=== PATIENT | female | born 1990 | race African-American/Black ===

== ENCOUNTER 2016-06-15 12:16 | Emergency (ER) | payer OTHER ==
[~2016-06-15] VITALS: Ht 165.1 cm; Wt 77.1 kg
[~2016-06-15 12:16] MED LIST: AUGMENTIN TAB875 MG ORAL; CIPRO500 MG PO; FAMOTIDINE40 MG ORAL; KEFLEX250 MG ORAL; KEFLEX500 MG ORAL; METROGEL-VAGINA70 G1 VAGIN; METRONIDAZOLE500 MG ORAL; NITROFURANTOIN100 MG PO; NKM; PHENERGAN25 M1 ORAL; PRENAPLUS TABL1 EACH PO; PRILOSEC20 MG ORAL; REGLAN10 MG ORAL; ZOFRAN ODT4 MG ORAL; ZOFRAN4 MG ORAL
--- NOTE | 2016-06-15 13:35 | Emergency Room Report ---
History of Present Illness General Chief Complaint: Nausea, Vomiting, and Diarrhea Present Illness Allergies: Coded Allergies: CODEINE (Verified Allergy, Mild, Hives, 08/10/13) Physical Exam Vital Signs Date Time Temp Pulse Resp B/P Pulse Ox O2 Delivery O2 Flow Rate FiO2 06/15/16 12:20 97.7 93 20 101/62 100 Room Air Medical Decision Making ER Course Informed by RN that patient didnt want to wait to be seen, requesting note to return to longterm. Last Vital Signs Date Time Temp Pulse Resp B/P Pulse Ox O2 Delivery O2 Flow Rate FiO2 06/15/16 12:20 97.7 93 20 101/62 100 Room Air Disposition: LEFT W/OUT BEING SEEN Referrals: NON PHYSICIAN (PCP) JULIÁN BLOOM M.D. Jun 15, 2016 13:35
[2016-06-16 05:03] VITALS: BP 1/1
== END 2016-06-15 13:39 | disposition left against medical advice (07) ==
LOC: EMR 12:50
DX: R11.2 Nausea with vomiting, unspecified (principal); Z53.21 Procedure and treatment not carried out due to patient leaving prior to being seen by health care provider
CPT/HCPCS: 99281

== ENCOUNTER 2016-06-19 17:25 | Emergency (ER) | payer OTHER ==
[~2016-06-19] VITALS: Ht 165.1 cm; Wt 77.1 kg
[2016-06-19 18:17] VITALS: BP 131/72
[2016-06-19] MEDS ORDERED: Mylanta II UD 30ml ORAL ONE (18:45)
[2016-06-19] MEDS ORDERED: Lidocaine 2% Visc 15ml soln ORAL ONE (18:45)
[2016-06-19] MEDS ORDERED: Ondansetron ODT 8mg tab ORAL ONE (18:45)
[2016-06-19] MEDS ORDERED: Dicyclomine HCl 10mg/5ml oral soln ORAL ONE (18:45)
--- NOTE | 2016-06-19 18:51 | Emergency Room Report ---
History of Present Illness General Chief Complaint: Abdominal Pain Source: Patient Present Illness HPI 26-year-old female complains of left-sided chest discomfort and abdominal discomfort for one day. Patient states that 2 weeks ago and he had some old meat that she just defrosted from the freezer. States that the next day she started to have nausea, vomiting, and abdominal pain. Patient states that she still has some nausea, but her vomiting and abdominal pain has resolved. Patient states that now she is experiencing body aches, nausea, bloating, left- sided chest /left upper quadrant pressure, and epigastric discomfort for the past 1-2 days. Patient states that her chest pressure only present when she is laying supine and resolves with sitting upright. Patient states that she is not taking any yceu-eyr-rqmeffa medications currently that there are no other provoking or relieving factors. Patient states that no one else in her family has similar symptoms as she is the only one who ate the questionable meat. Denies any current f/c/d, abd pain, back pain, neck pain, photophobia, phonophobia, CP, SOB or headache. Allergies: Coded Allergies: CODEINE (Verified Allergy, Mild, Hives, 08/10/13) Patient History Past Medical History: see triage record, old chart reviewed Past Surgical History: none Pertinent Family History: none Last Menstrual Period: 06/16/2016 Now: No : 2 Para: 1 Immunizations: UTD Reviewed Nursing Documentation: PMH: Agreed, PSxH: Agreed Nursing Documentation-PMH Past Medical History: No Stated History Review of Systems All Other Systems: negative except mentioned in HPI Physical Exam Vital Signs Date Time Temp Pulse Resp B/P Pulse Ox O2 Delivery O2 Flow Rate FiO2 06/19/16 17:44 97.7 73 16 128/74 100 Room Air Sp02 EP Interpretation: reviewed, normal General Appearance: no apparent distress, alert, GCS 15, non-toxic Head: normocephalic, atraumatic Eyes: bilateral eye PERRL, bilateral eye normal inspection ENT: hearing grossly normal, normal pharynx, no angioedema, normal voice, TMs + canals normal Neck: full range of motion, supple/symm/no masses Respiratory: chest non-tender, lungs clear, normal breath sounds, no rhonchi, no respiratory distress, no retraction, no accessory muscle use, speaking full sentences, palpation of chest normal, percussion normal Cardiovascular #1: normal peripheral pulses, regular rate, rhythm, no edema, no gallop, no murmur, no rub Gastrointestinal: normal bowel sounds, soft, non-distended, no guarding, no rebound, tenderness - epigastric Rectal: deferred Genitourinary: normal inspection, no CVA tenderness Musculoskeletal: back normal, digits/nails normal, gait/station normal, normal range of motion, non-tender Neurologic: alert, oriented x3, responsive, motor strength/tone normal, sensory intact, speech normal Psychiatric: judgement/insight normal, memory normal, mood/affect normal, no suicidal/homicidal ideation Skin: normal color, no rash, warm/dry, well hydrated Lymphatic: no adenopathy Medical Decision Making PA Attestation Dr. Juarez is my supervising physician with whom patient management has been discussed with. Diagnostic Impression: Primary Impression: Gastritis Qualified Codes: K29.00 - Acute gastritis without bleeding Additional Impression: Upper respiratory infection Qualified Codes: J06.9 - Acute upper respiratory infection, unspecified; B97.89 - Other viral agents as the cause of diseases classified elsewhere ER Course Pt. presents to the ED c/o of n/v and chest pressure with uri sxs. Ddx considered but are not limited to bronchitis, pneumonia, viral upper respiratory tract infection Vital signs: are WNL, pt. is afebrile H&PE are most consistent with gastritis with viral upper respiratory tract infection ORDERS: none required at this time, the diagnosis is clinical ED INTERVENTIONS: Decadron 4mg PO, GI Cocktail DISCHARGE: At this time pt. is stable for d/c to home. Patient states her symptoms have greatly improved after GI cocktail. Patient advised to f/u with PCP within next 5-7 days. Will provide printed patient care instructions, and any necessary prescriptions. Care plan and follow up instructions have been discussed with the patient prior to discharge. Last Vital Signs Date Time Temp Pulse Resp B/P Pulse Ox O2 Delivery O2 Flow Rate FiO2 06/19/16 18:17 97.6 69 15 131/72 99 Room Air Status: improved Disposition: HOME, SELF-CARE Condition: Improved Scripts Omeprazole Magnesium (OMEPRAZOLE MAGNESIUM) 20 Mg Capsule. 20 MG PO DAILY for 10 Days, #10 CAP Prov: JUNAID MCGOWAN P.A. 2/19/17 Famotidine (PEPCID) 40 Mg Tablet 40 MG PO QHS, #7 TAB 0 Refills Prov: JUNAID MCGOWAN 06/19/16 [facility] Patient Instructions: Gastritis, Adult, Upper Respiratory Infection, Adult Additional Instructions: Take medication as directed. Drink plenty of fluids which include Gatorade and water. Get plenty of rest. Avoid taking medications on an empty stomach. If you have cough avoid dairy and cold beverages. If you have a fever, headache or body aches please take zkoe-swv-[id number] tylenol/motrin/advil unless a prescription for these symptoms have been given. If your symptoms are worsening or you have shortness or breath, severe headaches or chest pain, please call 911 or go to the ER. Patient instructed to stay well hydrated and to use a liquid diet and then progress to soft bland diet as tolerated before reverting back to a regular diet. Patient Education was given to the patient. Patient advised if irreretractible pain, rectal bleeding, or no BM to go to ER immediately. JUNAID MCGOWAN Jun 19, 2016 18:51
[2016-06-19] MEDS ORDERED: PEPCID40 MG PO (19:03)
[2016-06-19] MEDS ORDERED: OMEPRAZOLE MAGN20 MG PO (19:03)
[2016-06-19 19:12] VITALS: BP 131/72
== END 2016-06-19 19:13 | disposition home or self-care (01) ==
LOC: EMR 18:25
DX: K29.70 Gastritis, unspecified, without bleeding (principal); J06.9 Acute upper respiratory infection, unspecified; Z88.6 Allergy status to analgesic agent
CPT/HCPCS: 99284; J8540; Q0162

== ENCOUNTER 2017-05-13 17:12 | Emergency (ER) | payer MEDICAID, OTHER ==
[~2017-05-13] VITALS: Ht 165.1 cm; Wt 81.6 kg
[~2017-05-13 17:12] MED LIST changes: +OMEPRAZOLE MAGN20 MG PO; +PEPCID40 MG PO
[2017-05-13 17:29] VITALS: BP 119/73
[2017-05-13] MEDS ORDERED: Metoclopramide 10mg/2ml Inj IVP SCH (18:00)
[2017-05-13 19:30] VITALS: BP 122/73
[2017-05-13] MEDS ORDERED: REGLAN10 MG ORAL (19:32)
[2017-05-13] MEDS ORDERED: ZANTAC150 MG ORAL (19:32)
[2017-05-13 19:34] LABS: APPEARANCE,URINE CLEAR; BILIRUBIN, URINE NEGATIVE (NEGATIVE); COLOR,URINE YELLOW; GLUCOSE, URINE (UA) NEGATIVE (NEGATIVE); KETONES,URINE NEGATIVE (NEGATIVE); LEUKOCYTE ESTERASE ,URINE NEGATIVE (NEGATIVE); NITRITE,URINE NEGATIVE (NEGATIVE); PH,URINE 6 (4.5-8.0); PROTEIN,URINE NEGATIVE (NEGATIVE); UROBILINOGEN,URINE NORMAL MG/DL (0.0-1.0)
[2017-05-13 19:47] VITALS: BP 122/73
--- NOTE | 2017-05-13 23:37 | Emergency Room Report ---
History of Present Illness General Chief Complaint: Nausea Source: Patient, Medical Record Present Illness HPI 19-year-old female presents to the emergency department for persistent vomiting times almost one week. Patient denies blood in the vomit or stool. Patient denies constipation or diarrhea. Patient reports that she is 7 weeks . Patient is normal uncomplicated previous . Pt. reports 8/10 in severity epigastric cramping during episodes of vomiting and resolves afterward. Patient says she has been taking prenatals, folic acid and iron regularly. Patient denies fevers or chills per she denies abdominal pain or tenderness. She reports mild progressive sore throat she believes is related to persistent vomiting/acid reflux. Patient denies vaginal bleeding or discharge. Denies CP, Palpitations, LOC, AMS, dizziness, Changes in Vision, Sensation, paresthesias, or a sudden severe headache. Allergies: Coded Allergies: CODEINE (Verified Allergy, Mild, Hives, 08/10/13) Patient History Past Medical History: see triage record Past Surgical History: none Pertinent Family History: none Last Menstrual Period: 03/01/17 Now: Yes - 7 weeks Reviewed Nursing Documentation: PMH: Agreed, PSxH: Agreed Nursing Documentation-PMH Past Medical History: No History, Except For Review of Systems All Other Systems: negative except mentioned in HPI Physical Exam Vital Signs Date Time Temp Pulse Resp B/P (MAP) Pulse Ox O2 Delivery O2 Flow Rate FiO2 05/13/17 17:22 98.4 87 16 119/73 98 Room Air Sp02 EP Interpretation: reviewed, normal General Appearance: alert, GCS 15, non-toxic, mild distress - gagging just prior to PE Head: normocephalic, atraumatic Eyes: bilateral eye normal inspection, bilateral eye PERRL ENT: hearing grossly normal, normal voice, uvula midline, moist mucus membranes , pharyngeal erythema Neck: full range of motion Respiratory: lungs clear, normal breath sounds, speaking full sentences Cardiovascular #1: regular rate, rhythm, no edema Gastrointestinal: normal bowel sounds, non tender, soft, other - Negative [place] signs, Negative MacBurney's sign, Negative Rosvigns Sign, Negative Psoas , No Peritoneal signs. Rectal: deferred Genitourinary: normal inspection Musculoskeletal: back normal, gait/station normal, normal range of motion, non- tender Neurologic: alert, oriented x3, responsive, motor strength/tone normal, sensory intact, normal gait, speech normal, grossly normal Psychiatric: judgement/insight normal Skin: normal color, no rash, warm/dry Medical Decision Making PA Attestation Dr. Tracey is my supervising Physician whom patient management has been discussed with. Diagnostic Impression: Primary Impression: Nausea and vomiting in ER Course 19-year-old female presents to the emergency department for persistent vomiting times almost one week. Patient denies blood in the vomit or stool. Patient denies constipation or diarrhea. Patient reports that she is 7 weeks . Patient is normal uncomplicated previous . Pt. reports 8/10 in severity epigastric cramping during episodes of vomiting and resolves afterward. Patient says she has been taking prenatals, folic acid and iron regularly. Patient denies fevers or chills per she denies abdominal pain or tenderness. She reports mild progressive sore throat she believes is related to persistent vomiting/acid reflux. Patient denies vaginal bleeding or discharge. Denies CP, Palpitations, LOC, AMS, dizziness, Changes in Vision, Sensation, paresthesias, or a sudden severe headache. Ddx considered but are not limited to GE, colitis, acute appy, SBO, Cyclical Vomiting secondary to THC, esophageal bleed, , or hyperemesis gravidarum just to name a few Vital signs: pt. is afebrile, non-toxic in appearance. H&PE are most consistent with nausea /vomiting associated with - that is not intractable in addition to mild dehydration. ORDERS: -UA: Unremarkable ED INTERVENTIONS: -1000 NS iv hydration, 10mg Reglan -Reevaluation the patient is in no acute distress and able to tolerate oral fluids. Patient reports she feels much better and is ready to go home. d/w pt. conservative treatment, and to follow up with OBGYN. . d/w pt. to return to the ED with worsening or new symptoms. DISCHARGE: At this time pt. is stable for d/c to home. Will provide printed patient care instructions, and any necessary prescriptions. Care plan and follow up instructions have been discussed with the patient prior to discharge. Labs Test 05/13/17 19:00 Urine Color Yellow Urine Appearance Clear Urine pH 6 (4.5-8.0) Urine Specific [place] 1.020 (1.005-1.035) Urine Protein Negative (NEGATIVE) Urine Glucose (UA) Negative (NEGATIVE) Urine Ketones Negative (NEGATIVE) Urine Occult Blood Negative (NEGATIVE) Urine Nitrite Negative (NEGATIVE) Urine Bilirubin Negative (NEGATIVE) Urine Urobilinogen Normal MG/DL (0.0-1.0) Urine Leukocyte Esterase Negative (NEGATIVE) Last Vital Signs Date Time Temp Pulse Resp B/P (MAP) Pulse Ox O2 Delivery O2 Flow Rate FiO2 05/13/17 17:29 98.4 85 16 119/73 98 Room Air Disposition: HOME, SELF-CARE Condition: Stable Scripts Ranitidine Hcl* (ZANTAC*) 150 Mg Tablet 150 MG ORAL TWICE A DAY for 7 Days, #14 TAB Prov: Bailey Tian 05/13/17 Metoclopramide Hcl* (REGLAN*) 10 Mg Tablet 10 MG ORAL THREE TIMES A DAY, #20 TAB Prov: Bailey Tian. 05/13/17 Referrals: [facility],REFERRING (PCP) Patient Instructions: Nausea and Vomiting, Adult, Dehydration, Adult Additional Instructions: Take medications as directed. Follow up with a OBGYN within 3 days, even if your symptoms have resolved. Return sooner to ED if new symptoms occur, or current symptoms become worse. - Please note that this Emergency Department Report was dictated using [employer] sorter technology software, occasionally this can lead to erroneous entry secondary to interpretation by the dictation equipment. Bailey Tian May 13, 2017 23:37
== END 2017-05-13 19:47 | disposition home or self-care (01) ==
LOC: EMR 17:39
DX: O21.9 Vomiting of pregnancy, unspecified (principal); Z3A.01 Less than 8 weeks gestation of pregnancy; Z88.6 Allergy status to analgesic agent
CPT/HCPCS: 81003; 96374; 96375; 99284; J2765

== ENCOUNTER 2017-08-19 10:22 | Emergency (ER) | payer MEDICAID, OTHER ==
[~2017-08-19] VITALS: Ht 165.1 cm; Wt 81.6 kg
[~2017-08-19 10:22] MED LIST changes: +ZANTAC150 MG ORAL
[2017-08-19] MEDS ORDERED: NKM (10:32)
[2017-08-19] MEDS ORDERED: Ketorolac 60mg Inj IM ONE (10:45)
[2017-08-19 11:00] VITALS: BP 110/66
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
[2017-08-19] MEDS ORDERED: IBUPROFEN600 MG ORAL (11:32)
[2017-08-19] MEDS ORDERED: CYCLOBENZAPRINE10 MG ORAL (11:32)
[2017-08-19] MEDS ORDERED: ACETAMINOPHEN500 M3 ORAL (11:32)
[2017-08-19 11:48] VITALS: BP 110/66
== END 2017-08-19 11:49 | disposition home or self-care (01) ==
LOC: EMR 10:49
DX: S13.4XXA Sprain of ligaments of cervical spine, initial encounter (principal); V43.52XA Car driver injured in collision with other type car in traffic accident, initial encounter; Y92.410 Unspecified street and highway as the place of occurrence of the external cause; Y99.9 Unspecified external cause status; Z88.5 Allergy status to narcotic agent
CPT/HCPCS: 96372; 99283

== ENCOUNTER 2018-04-09 12:25 | Emergency (ER) | payer MEDICAID ==
[~2018-04-09] VITALS: Ht 165.1 cm; Wt 81.6 kg
[~2018-04-09 12:25] MED LIST changes: +ACETAMINOPHEN500 M3 ORAL; +CYCLOBENZAPRINE10 MG ORAL; +IBUPROFEN600 MG ORAL
[2018-04-09 12:35] VITALS: BP 123/72
[2018-04-09] MEDS ORDERED: Lidocaine 1% MPF 10mg/ml 5ml INJ ONE (12:45)
[2018-04-09] MEDS ORDERED: Azithromycin 250mg tab ORAL ONE (12:45)
[2018-04-09] MEDS ORDERED: Fluconazole 100mg tab ORAL ONE (12:45)
--- NOTE | 2018-04-09 12:46 | Emergency Room Report ---
History of Present Illness General Chief Complaint: Female Urogenital Problems Source: Patient Present Illness HPI 28-year-old female patient presents the ER complaining of vaginal discharge for the past 2 days. Reports vaginal discharge is white, reports pruritic. Dysuria , hematuria. Denies foul-smelling odor. Denies fever, chest pain, shortness of breath, abdominal pain, flank pain, vomiting. Reports last menstrual period was normal for her, states was on 15th of last month, denies . Patient is being seen in the ER with her boyfriend who is currently asymptomatic. Patient reports concern of possible STI, would like to be treated. Allergies: Coded Allergies: CODEINE (Verified Allergy, Mild, Hives, 08/10/13) Patient History Past Medical History: see triage record Now: No Reviewed Nursing Documentation: PMH: Agreed; PSxH: Agreed Nursing Documentation-PMH Past Medical History: No Stated History Review of Systems All Other Systems: negative except mentioned in HPI Physical Exam Vital Signs Date Time Temp Pulse Resp B/P (MAP) Pulse Ox O2 Delivery O2 Flow Rate FiO2 04/09/18 12:27 98.4 71 17 126/73 99 Room Air Sp02 EP Interpretation: reviewed, normal General Appearance: well appearing, no apparent distress, alert, GCS 15, non- toxic Head: normocephalic, atraumatic Eyes: bilateral eye normal inspection, bilateral eye PERRL ENT: hearing grossly normal, normal pharynx, no angioedema, normal voice, uvula midline, moist mucus membranes Neck: full range of motion Respiratory: lungs clear, normal breath sounds, no rhonchi, no respiratory distress, no accessory muscle use, no wheezing, speaking full sentences Cardiovascular #1: regular rate, rhythm, no edema Gastrointestinal: non tender, soft, no mass, non-distended, no guarding, no rebound Genitourinary: no CVA tenderness Musculoskeletal: back normal, digits/nails normal, gait/station normal, normal range of motion, non-tender Neurologic: alert, oriented x3, responsive, motor strength/tone normal, sensory intact Psychiatric: mood/affect normal Skin: no rash Medical Decision Making PA Attestation Dr. Gomez is my supervising Physician whom patient management has been discussed with. Diagnostic Impression: Primary Impression: Yeast UTI Additional Impression: Encounter for assessment of sexually transmitted disease exposure ER Course Pt. presents to the ED c/o STI. Ddx considered but are not limited to gonorrhea, chalmydia, cystitis, pylonephritis, bacterial vaginosis, yeast infection. Vital signs: are WNL, pt. is afebrile Ordered UA and abx. ER COURSE: Patient history consistent with yeast infection, will provide patient with fluconazole in the ER. UA results show moderate epithelial cells, likely contaminated sample, negative nitrites, low suspicion for infection Urine negative Provided patient with Rocephin and Azithromycin in the ER. Informed patient medications will cover for gonorrhea and chlamydia, needs further follow-up evaluation and possible treatment of other sexual transmitted infections. Advised to use safe sex practices including but not limited to use of condoms. Avoid sexual activity for the next 2 weeks. Instructed patient to follow up with STI clinic and/or PCP for STI evaluation and further treatment as necessary. Instructed patient to inform partners of needs for evaluation and treatment of possible infections. DISCHARGE: Patient is resting comfortably, in no acute distress, nontoxic appearing, talking without difficulty. Patient to take medications as instructed Will provide with patient care instructions and any necessary prescriptions. Care plan and follow-up instructions provided. Patient instructed to follow-up with primary care provider in 3 - 5 days. Patient questions asked and answered. Patient reports understanding and agreement to treatment plan. ER precautions given. Patient instructed to return to ER immediately for any new or worsening of symptoms including but not limited to increasing SOB, persistent fever. - Please note that this Emergency Department Report was dictated using [employer] technology software, occasionally this can lead to erroneous entry secondary to interpretation by the dictation equipment. Labs Test 04/09/18 12:26 Urine Color Pale yellow Urine Appearance Clear Urine pH 6 (4.5-8.0) Urine Specific [place] 1.020 (1.005-1.035) Urine Protein Negative (NEGATIVE) Urine Glucose (UA) Negative (NEGATIVE) Urine Ketones 2+ (NEGATIVE) Urine Blood 1+ (NEGATIVE) Urine Nitrite Negative (NEGATIVE) Urine Bilirubin Negative (NEGATIVE) Urine Urobilinogen Normal MG/DL (0.0-1.0) Urine Leukocyte Esterase 2+ (NEGATIVE) Urine RBC 5-10 /HPF (0 - 2) Urine WBC 2-4 /HPF (0 - 2) Urine Squamous Epithelial Cells Moderate /LPF (NONE/OCC) Urine Bacteria Few /HPF (NONE) Urine HCG, Qualitative Negative (NEGATIVE) Last Vital Signs Date Time Temp Pulse Resp B/P (MAP) Pulse Ox O2 Delivery O2 Flow Rate FiO2 04/09/18 12:35 98.7 70 16 123/72 99 Room Air Status: improved Disposition: HOME, SELF-CARE Condition: Stable Patient Instructions: Sexually Transmitted Disease, Hvvy-vo-[id number], Vaginal Yeast Infection, Adult Additional Instructions: Followup with primary care provider and followup with STI clinic for further evaluation and treatment. Alert sexual partners for need for evaluation and treatment. Wear condoms during sex. Avoid sexual activity for 2 weeks. Drink plenty of fluids. Patient questions asked and answered. ER precautions given, patient instructed to return to ER immediately for any new or worsening of symptoms. Gee Lyles Apr 09, 2018 12:46
[2018-04-09 13:16] LABS: APPEARANCE,URINE CLEAR; BILIRUBIN, URINE NEGATIVE (NEGATIVE); COLOR,URINE PALE YELLOW; GLUCOSE, URINE (UA) NEGATIVE (NEGATIVE); KETONES,URINE 2+ (NEGATIVE); LEUKOCYTE ESTERASE ,URINE 2+ (NEGATIVE); NITRITE,URINE NEGATIVE (NEGATIVE); PH,URINE 6 (4.5-8.0); PROTEIN,URINE NEGATIVE (NEGATIVE); UROBILINOGEN,URINE NORMAL MG/DL (0.0-1.0)
[2018-04-09 13:52] VITALS: BP 125/71
== END 2018-04-09 13:54 | disposition home or self-care (01) ==
LOC: EMR 13:35
DX: B37.49 Other urogenital candidiasis (principal); Z20.2 Contact with and (suspected) exposure to infections with a predominantly sexual mode of transmission
CPT/HCPCS: 81003; 81025; 96372; 96374; 99284; J0696; Q0144

== ENCOUNTER 2018-10-13 17:38 | Emergency (ER) | payer MEDICAID ==
[~2018-10-13] VITALS: Ht 165.1 cm; Wt 81.6 kg
--- NOTE | 2018-10-13 18:34 | NUR ---
ED Nurse Note: Pt came in from home due to n/v/d x1 day. Emesis was undigested food and fluid. Last bowel movement was today. No complaint of pain. no active vomiting upon arrival. AOx4, VSS fadumo. Will cont to monitor.
[2018-10-13 18:35] VITALS: BP 129/79
[2018-10-13 19:09] LABS: APPEARANCE,URINE CLEAR; BILIRUBIN, URINE NEGATIVE (NEGATIVE); GLUCOSE, URINE (UA) NEGATIVE (NEGATIVE); KETONES,URINE 1+ (NEGATIVE); LEUKOCYTE ESTERASE ,URINE NEGATIVE (NEGATIVE); NITRITE,URINE NEGATIVE (NEGATIVE); PH,URINE 6 (4.5-8.0); PROTEIN,URINE NEGATIVE (NEGATIVE); UROBILINOGEN,URINE NORMAL MG/DL (0.0-1.0)
--- NOTE | 2018-10-13 19:10 | NUR ---
ED Nurse Note: Received report from Tiana/RN, Pt is A/O X4. VSS, will continue to monitor.
[2018-10-13 19:12] LABS: COLOR,URINE YELLOW
[2018-10-13 19:19] LABS: ANION GAP 10 mmol/L (5-15); BLOOD UREA NITROGEN 13 mg/dL (7-18); CALCIUM 9.2 MG/DL (8.5-10.1); CARBON DIOXIDE 26 MMOL/L (21-32); CHLORIDE 104 MMOL/L (98-107); CREATININE 0.9 MG/DL (0.55-1.30); POTASSIUM 3.5 MMOL/L (3.5-5.1); SODIUM 140 MMOL/L (136-145)
--- NOTE | 2018-10-13 19:20 | NUR ---
X-ray notified to page [employer]
[2018-10-13 19:23] LABS: ALANINE AMINOTRANSFERASE 22 U/L (12-78); ALBUMIN 4.6 G/DL (3.4-5.0); ALBUMIN/GLOBULIN RATIO 1.2 (1.0-2.7); ALKALINE PHOSPHATASE 59 U/L (46-116); ASPARTATE AMINO TRANSFERASE 19 U/L (15-37); BASOPHILS % (AUTO) 0.6 % (0.0-2.0); BILIRUBIN,TOTAL 0.3 MG/DL (0.2-1.0); EOSINOPHILS % (AUTO) 1.1 % (0.0-3.0); HEMATOCRIT 32.7 % (37.0-47.0); HEMOGLOBIN 11.7 G/DL (12.0-16.0); MEAN CORPUSCULAR VOLUME 83 FL (80-99); MONOCYTES % (AUTO) 5.4 % (1.0-10.0); NEUTROPHILS % (AUTO) 73.9 % (45.0-75.0); PLATELET COUNT 328 K/UL (150-450); RED BLOOD COUNT 3.94 M/UL (4.20-5.40); RED CELL DISTRIBUTION WIDTH 11.5 % (11.6-14.8); WHITE BLOOD COUNT 9.7 K/UL (4.8-10.8)
--- NOTE | 2018-10-13 20:27 | Emergency Room Report ---
History of Present Illness General Chief Complaint: Nausea, Vomiting, and Diarrhea Source: Patient, Medical Record (Dinora Fox) Present Illness HPI 28-year-old female with no significant past medical history here complaining of waking up today with multiple bouts of nonbloody emesis. She also started having nonbloody diarrhea however denies abdominal pain reports epigastric pain only when she is about to vomit. Denies fever and chills, chest pain, shortness of breath, palpitation, URI symptoms. Denies recent travel or sick contact. She reports that she has been drinking every day for the past 2 weeks , her last menstrual period was on October 03, 2018. Patient reports that she has had miscarriages in the past however none recently. Patient then after being told that she has a positive urine for and needing more blood draw for confirmation and OB ultrasound tells my nurse that she had an elective on 02 October. When I go back in the room she tells me that she did not think that it would be necessary to tell me that she just had an 10 days ago. She reports that she had light bleeding on 02 October as she had mentioned that earlier when I asked her whether she had a regular. However she reports that she wants to be checked to see if she is still she reports that her latest ultrasound before [facility] showed single intrauterine and she had a D&C when she was 7 weeks . She never followed up with her PERMIT REVIEW ASSISTANT afterwards. Did not have any clotting and currently has no clotting vaginal cramping or bleeding. Has no vaginal discharge. Patient is in no discomfort. She further denies dizziness, headache , loss of consciousness, syncope. She is (Dinora Fox) Allergies: Coded Allergies: CODEINE (Verified Allergy, Mild, Hives, 08/10/13) Patient History Past Medical History: see triage record Past Surgical History: unable to obtain Pertinent Family History: none Last Menstrual Period: 10/03/2018 Now: No : 1 Para: 1 Immunizations: UTD Reviewed Nursing Documentation: PMH: Agreed; PSxH: Agreed (Dinora Fox) Review of Systems All Other Systems: negative except mentioned in HPI (Dinora Fox) Physical Exam Vital Signs Date Time Temp Pulse Resp B/P (MAP) Pulse Ox O2 Delivery O2 Flow Rate FiO2 10/13/18 18:05 99.1 78 15 134/80 (98) 99 Room Air Sp02 EP Interpretation: reviewed, normal General Appearance: normal inspection, well appearing, no apparent distress, alert Head: normocephalic, atraumatic Eyes: bilateral eye normal inspection, bilateral eye PERRL ENT: normal ENT inspection, hearing grossly normal, normal pharynx Neck: normal inspection, full range of motion, supple Respiratory: normal inspection, chest non-tender, lungs clear, normal breath sounds, no retraction, no wheezing Cardiovascular #1: normal inspection, regular rate, rhythm, no edema, no murmur , normal capillary refill Cardiovascular #2: 2+ dorsalis pedis (R), 2+ dorsalis pedis (L) Gastrointestinal: normal inspection, non tender, soft, no mass, no organomegaly , no peritonitis, no bruit, non-distended, other - Negative McBurney's and Rovsing's Rectal: deferred Genitourinary: no CVA tenderness Musculoskeletal: normal inspection, back normal, digits/nails normal, gait/ station normal Neurologic: normal inspection, alert, oriented x3 Psychiatric: normal inspection, judgement/insight normal, memory normal Skin: normal inspection, normal color, no rash Lymphatic: normal inspection, no adenopathy (Dinora Fox) Medical Decision Making PA Attestation All diagnoses and treatment plans were reviewed and discussed with my supervising physician Dr. Hull (Dinora Fox) Diagnostic Impression: Primary Impression: Nausea, vomiting, and diarrhea Additional Impression: Status post elective ER Course 28-year-old female with no significant past medical history here complaining of waking up today with multiple bouts of nonbloody emesis. She also started having nonbloody diarrhea however denies abdominal pain reports epigastric pain only when she is about to vomit. Denies fever and chills, chest pain, shortness of breath, palpitation, URI symptoms. Denies recent travel or sick contact. She reports that she has been drinking every day for the past 2 weeks , her last menstrual period was on October 03, 2018. Patient reports that she has had miscarriages in the past however none recently. Patient then after being told that she has a positive urine for and needing more blood draw for confirmation and OB ultrasound tells my nurse that she had an elective on 02 October. When I go back in the room she tells me that she did not think that it would be necessary to tell me that she just had an 10 days ago. She reports that she had light bleeding on 02 October as she had mentioned that earlier when I asked her whether she had a regular. However she reports that she wants to be checked to see if she is still she reports that her latest ultrasound before [facility] showed single intrauterine and she had a D&C when she was 7 weeks . She never followed up with her PERMIT REVIEW ASSISTANT afterwards. Did not have any clotting and currently has no clotting vaginal cramping or bleeding. Has no vaginal discharge. Patient is in no discomfort. She further denies dizziness, headache , loss of consciousness, syncope. She is Ddx considered but are not limited to:influenza with GI manifestation, UT, complication with , post status without complication nausea vomiting Vital signs: are WNL, pt. is afebrile H&PE are most consistent with: Nausea vomiting diarrhea, post status without complication ORDERS: CBC, CMP, UA, urine test, beta hCG, NS bolus, Zofran, omeprazole ED INTERVENTIONS: NS bolus and Zofran DISCHARGE: At this time pt. is stable for d/c to home. Will provide printed patient care instructions, and any necessary prescriptions. Care plan and follow up instructions have been discussed with the patient prior to discharge. At this time no OB ultrasound necessary as beta hCG levels are 207 11 days post D&C . No abdominal pain, no vaginal cramping I advised the patient to follow-up with her PERMIT REVIEW ASSISTANT as she was supposed to do that after D&C 11 days ago. urine preg pos, beta HCG 207 ( 8wks) (Dinora Fox) Laboratory Tests Test 10/13/18 18:40 10/13/18 19:40 White Blood Count 9.7 K/UL (4.8-10.8) Red Blood Count 3.94 M/UL (4.20-5.40) L Hemoglobin 11.7 G/DL (12.0-16.0) L Hematocrit 32.7 % (37.0-47.0) L Mean Corpuscular Volume 83 FL (80-99) Mean Corpuscular Hemoglobin 29.8 PG (27.0-31.0) Mean Corpuscular Hemoglobin Concent 35.8 G/DL (32.0-36.0) Red Cell Distribution Width 11.5 % (11.6-14.8) L Platelet Count 328 K/UL (150-450) Mean Platelet Volume 5.9 FL (6.5-10.1) L Neutrophils (%) (Auto) 73.9 % (45.0-75.0) Lymphocytes (%) (Auto) 19.0 % (20.0-45.0) L Monocytes (%) (Auto) 5.4 % (1.0-10.0) Eosinophils (%) (Auto) 1.1 % (0.0-3.0) Basophils (%) (Auto) 0.6 % (0.0-2.0) Urine Color Yellow Urine Appearance Clear Urine pH 6 (4.5-8.0) Urine Specific [place] 1.020 (1.005-1.035) Urine Protein Negative (NEGATIVE) Urine Glucose (UA) Negative (NEGATIVE) Urine Ketones 1+ (NEGATIVE) H Urine Blood 2+ (NEGATIVE) H Urine Nitrite Negative (NEGATIVE) Urine Bilirubin Negative (NEGATIVE) Urine Urobilinogen Normal MG/DL (0.0-1.0) Urine Leukocyte Esterase Negative (NEGATIVE) Urine RBC 0-2 /HPF (0 - 2) Urine WBC 0-2 /HPF (0 - 2) Urine Squamous Epithelial Cells Many /LPF (NONE/OCC) H Urine Bacteria Few /HPF (NONE) Urine HCG, Qualitative Positive (NEGATIVE) Sodium Level 140 MMOL/L (136-145) Potassium Level 3.5 MMOL/L (3.5-5.1) Chloride Level 104 MMOL/L (98-107) Carbon Dioxide Level 26 MMOL/L (21-32) Anion Gap 10 mmol/L (5-15) Blood Urea Nitrogen 13 mg/dL (7-18) Creatinine 0.9 MG/DL (0.55-1.30) Estimate Glomerular Filtration Rate > 60 mL/min (>60) Glucose Level 100 MG/DL (74-106) Calcium Level 9.2 MG/DL (8.5-10.1) Total Bilirubin 0.3 MG/DL (0.2-1.0) Aspartate Amino Transferase (AST) 19 U/L (15-37) Alanine Aminotransferase (ALT) 22 U/L (12-78) Alkaline Phosphatase 59 U/L (46-116) Total Protein 8.3 G/DL (6.4-8.2) H Albumin 4.6 G/DL (3.4-5.0) Globulin 3.7 g/dL Albumin/Globulin Ratio 1.2 (1.0-2.7) Lipase 89 U/L (73-393) Urine Opiates Screen Negative (NEGATIVE) Urine Barbiturates Screen Negative (NEGATIVE) Phencyclidine (PCP) Screen Negative (NEGATIVE) Urine Amphetamines Screen Negative (NEGATIVE) Urine Benzodiazepines Screen Negative (NEGATIVE) Urine Cocaine Screen Negative (NEGATIVE) Urine Marijuana (THC) Screen Negative (NEGATIVE) Serum Alcohol < 3 mg/dL Human Chorionic Gonadotropin, Quant 207 mIU/mL (1-6) H (Marco Antonio Hull MD) Last Vital Signs Date Time Temp Pulse Resp B/P (MAP) Pulse Ox O2 Delivery O2 Flow Rate FiO2 10/13/18 18:35 99.1 77 15 129/79 100 Room Air (Dinora Fox) Disposition: HOME, SELF-CARE Condition: Stable Scripts Omeprazole (OMEPRAZOLE) 20 Mg Capsule.dr 20 MG ORAL DAILY, #20 CAP Prov: Dinora Fox 10/13/18 Ondansetron (Zofran) 4 Mg Tablet 4 MG ORAL Q6H PRN for Nausea & Vomiting, #10 TAB Prov: Dinora Fox 10/13/18 Referrals: [facility],REFERRING (PCP) Patient Instructions: Dilation and Curettage or Vacuum Curettage, Nausea and Vomiting, Adult, [id number] Additional Instructions: Follow-up with your primary care provider and PERMIT REVIEW ASSISTANT for further assessment at this point no imaging needed as you have no abdominal pain nausea vomiting secondary to alcohol intake after a procedure that you had 10 days ago for selective at this point very low numbers of . Dinora Fox Oct 13, 2018 20:27 Marco Antonio Hull MD Oct 14, 2018 04:28
[2018-10-13] MEDS ORDERED: OMEPRAZOLE20 M2 ORAL (20:28)
[2018-10-13] MEDS ORDERED: ZOFRAN4 M1 ORAL (20:28)
[2018-10-13 20:50] VITALS: BP 128/76
--- NOTE | 2018-10-13 20:50 | NUR ---
ER DISCHARGE NOTE: Patient is cleared to be discharged per ERMD. Pt is aox4 on room air with stable vital signs. Pt was given dc and prescription instructions. Pt was able to verbalize understanding. Pt's id band removed. Pt is able to ambulate with steady gait and took all belongings.
== END 2018-10-13 20:50 | disposition home or self-care (01) ==
LOC: EMR 19:11
DX: R11.2 Nausea with vomiting, unspecified (principal); R19.7 Diarrhea, unspecified; Z88.6 Allergy status to analgesic agent
CPT/HCPCS: 36415; 80053; 80307; 80329; 81001; 81025; 83690; 84702; 85025; 86900; 86901; 96361; 96374; 99284; J2405

== ENCOUNTER 2018-10-24 22:30 | Emergency (ER) | payer MEDICAID ==
[~2018-10-24] VITALS: Ht 165.1 cm; Wt 81.6 kg
[~2018-10-24 22:30] MED LIST changes: +OMEPRAZOLE20 M2 ORAL; +ZOFRAN4 M1 ORAL
[2018-10-24 23:05] VITALS: BP 118/76
--- NOTE | 2018-10-24 23:10 | NUR ---
ED Nurse Note: Patient walked in to ER c/o abdominal pain 12/08. Per patient she had at [facility], and since that she has lower abdominal pain. Deny bleeding. AAO x4, VSS at this time, skin is dry warm to touch. Boyfriend at the bed side.
[2018-10-24] MEDS ORDERED: Ketorolac 30mg Inj IV ONE (23:15)
--- NOTE | 2018-10-24 23:18 | Emergency Room Report ---
History of Present Illness General Chief Complaint: Abdominal Pain Source: Patient Present Illness HPI This is a 28-year-old female who had an elective with a D&C done on October 02. She was doing well until about a week ago. Then she started having some mild suprapubic pain. Now become more severe. Has urgency and frequency. No hematuria. No vaginal bleeding. Pain is 8 out of 10. No radiation. No nausea no vomiting. Allergies: Coded Allergies: CODEINE (Verified Allergy, Mild, Hives, 10/24/18) Patient History Past Medical History: see triage record, old chart reviewed Past Surgical History: none Pertinent Family History: none Social History: Denies: smoking Last Menstrual Period: 11/12 Now: No Para: 1 Immunizations: other Reviewed Nursing Documentation: PMH: Agreed; PSxH: Agreed Nursing Documentation-PMH Past Medical History: No Stated History History Of Psychiatric Problem: No Review of Systems Eye: Denies: eye pain, blurred vision ENT: Denies: ear pain, nose congestion, throat swelling Respiratory: Denies: cough, shortness of breath Cardiovascular: Denies: chest pain, palpitations Gastrointestinal: Reports: abdominal pain; Denies: diarrhea, nausea, vomiting Genitourinary: Reports: dysuria, frequency, pain Musculoskeletal: Denies: back pain, joint pain Skin: Denies: rash Neurological: Denies: headache, numbness Endocrine: Denies: increased thirst, increased urine Hematologic/Lymphatic: Denies: easy bruising All Other Systems: negative except mentioned in HPI Physical Exam Vital Signs Date Time Temp Pulse Resp B/P (MAP) Pulse Ox O2 Delivery O2 Flow Rate FiO2 10/24/18 22:53 98.1 71 18 118/76 (90) 97 Room Air Vitals normal Sp02 EP Interpretation: reviewed, normal General Appearance: well appearing, no apparent distress, alert Head: normocephalic, atraumatic Eyes: bilateral eye PERRL, bilateral eye EOMI ENT: hearing grossly normal, normal pharynx Neck: full range of motion, supple, no meningismus Respiratory: chest non-tender, lungs clear, normal breath sounds Cardiovascular #1: regular rate, rhythm, no murmur Gastrointestinal: normal bowel sounds, non tender, no mass, no organomegaly, no bruit, non-distended Musculoskeletal: back normal, gait/station normal, normal range of motion Psychiatric: mood/affect normal Skin: warm/dry Medical Decision Making Diagnostic Impression: Primary Impression: Retained products of conception ER Course Patient presents with pelvic pain and has a small retained products of conception. No evidence of infection. No evidence of endometritis. Will discharge home. She has a follow-up with [facility]. CT/MRI/US Diagnostic Results CT/MRI/US Diagnostic Results : Imaging Test Ordered: Pelvic ultrasound Impression Read by radiologist. No focus of decreased echogenic material in the endometrium. Last Vital Signs Date Time Temp Pulse Resp B/P (MAP) Pulse Ox O2 Delivery O2 Flow Rate FiO2 10/24/18 23:05 98.1 18 118/76 97 Room Air 10/24/18 23:05 71 Status: improved Disposition: HOME, SELF-CARE Condition: Stable Scripts Ibuprofen* (MOTRIN*) 600 Mg Tablet 600 MG ORAL THREE TIMES A DAY, #30 TAB 0 Refills Prov: Liborio Gunn MD 10/25/18 Hydrocodone/Acetaminophen 5-325* (HYDROCODONE/ACETAMINOPHEN 5-325*) 1 Each Tablet 1 TAB ORAL Q6H PRN for For Pain, #10 TAB 0 Refills Prov: Liborio Gunn MD 10/25/18 Additional Instructions: Follow-up with your [facility] A[facility]LE C[facility]IER within a week. Return if worse. Liborio Gunn MD Oct 24, 2018 23:18
[2018-10-24 23:29] LABS: BASOPHILS % (AUTO) 0.7 % (0.0-2.0); EOSINOPHILS % (AUTO) 2.4 % (0.0-3.0); HEMATOCRIT 33.7 % (37.0-47.0); HEMOGLOBIN 11.5 G/DL (12.0-16.0); LYMPHOCYTES % (AUTO) 28.7 % (20.0-45.0); MEAN CORPUSCULAR VOLUME 87 FL (80-99); MONOCYTES % (AUTO) 8.5 % (1.0-10.0); NEUTROPHILS % (AUTO) 59.8 % (45.0-75.0); PLATELET COUNT 279 K/UL (150-450); RED BLOOD COUNT 3.87 M/UL (4.20-5.40); RED CELL DISTRIBUTION WIDTH 12.6 % (11.6-14.8); WHITE BLOOD COUNT 8.7 K/UL (4.8-10.8)
[2018-10-24 23:30] LABS: APPEARANCE,URINE CLEAR; BILIRUBIN, URINE NEGATIVE (NEGATIVE); COLOR,URINE PALE YELLOW; GLUCOSE, URINE (UA) NEGATIVE (NEGATIVE); KETONES,URINE NEGATIVE (NEGATIVE); LEUKOCYTE ESTERASE ,URINE 1+ (NEGATIVE); NITRITE,URINE NEGATIVE (NEGATIVE); PH,URINE 8 (4.5-8.0); PROTEIN,URINE NEGATIVE (NEGATIVE); UROBILINOGEN,URINE 4 MG/DL (0.0-1.0)
[2018-10-24 23:42] LABS: ANION GAP 9 mmol/L (5-15); BLOOD UREA NITROGEN 16 mg/dL (7-18); CALCIUM 9.6 MG/DL (8.5-10.1); CARBON DIOXIDE 28 MMOL/L (21-32); CHLORIDE 107 MMOL/L (98-107); CREATININE 0.9 MG/DL (0.55-1.30); POTASSIUM 4.1 MMOL/L (3.5-5.1); SODIUM 143 MMOL/L (136-145)
[2018-10-24 23:47] LABS: ALANINE AMINOTRANSFERASE 21 U/L (12-78); ALBUMIN 3.7 G/DL (3.4-5.0); ALKALINE PHOSPHATASE 62 U/L (46-116); ASPARTATE AMINO TRANSFERASE 13 U/L (15-37); BILIRUBIN,TOTAL 0.3 MG/DL (0.2-1.0)
[2018-10-25] MEDS ORDERED: Morphine Sulfate 4mg/ml Inj (IV USE ONLY) IVP ONE
[2018-10-25] MEDS ORDERED: IBUPROFEN600 MG ORAL (01:21)
[2018-10-25] MEDS ORDERED: HYDROCODON-ACE1 EA15 ORAL (01:21)
[2018-10-25 01:36] VITALS: BP 118/76
--- NOTE | 2018-10-25 01:37 | NUR ---
ER DISCHARGE NOTE: Patient is cleared to be discharged per ERMD, pt is aox4, on room air, with stable vital signs. pt was given dc and prescription instructions, pt was able to verbalize understanding, pt id band and iv site removed without complications. pt is able to ambulate with steady gait. pt took all belongings.
--- NOTE | 2018-10-25 17:39 | Diagnostic Imaging Report ---
Indication: Positive test patient presenting with pelvic pain Technique: Grayscale and duplex Doppler imaging of the pelvis performed utilizing a transabdominal scan and endovaginal scan. Comparison: None Findings: There is no IUP. There is mild free fluid within the cul-de-sac. The endometrium is about 9 mm in thickness which is within normal limits. Trace fluid was appreciated in real-time per technologist but not demonstrated well on static images provided. Follow-up could be performed. The uterus appears normal measuring 9.2 x 6.9 x 4.7 cm. Both ovaries are demonstrated which appear normal. Dopplerable blood flow demonstrated. Right ovary measures 3 x 3.2 x 2.6 cm. Left ovary 3.4 x 3 1.8 cm. IMPRESSION: No IUP. In light of the positive results, considerations include normal early IUP not yet visualized, ectopic and spontaneous . Follow-up and correlation with serial quantitative beta hCG recommended. Trace fluid noted in the endometrial canal in real-time perTechnologist without demonstration of this on static provided images.
== END 2018-10-25 01:37 | disposition home or self-care (01) ==
LOC: EMR 22:43
DX: O07.4 Failed attempted termination of pregnancy without complication (principal); Z88.6 Allergy status to analgesic agent; R30.0 Dysuria
CPT/HCPCS: 36415; 76801; 80053; 81003; 81025; 83690; 84702; 85025; 96361; 96374; 96375; 99284; J1885; J2270; J2405

== ENCOUNTER 2018-12-18 02:19 | Emergency (ER) | payer MEDICAID ==
[~2018-12-18] VITALS: Ht 165.1 cm; Wt 81.6 kg
[~2018-12-18 02:19] MED LIST changes: +HYDROCODON-ACE1 EA15 ORAL
[2018-12-18 02:37] VITALS: BP 120/69
--- NOTE | 2018-12-18 02:42 | Emergency Room Report ---
History of Present Illness General Chief Complaint: Vaginal Source: Patient Present Illness HPI Is a 28-year-old female with no past medical history. She presents with chief complaint of vaginal discharge. Onset for 2 days. Greenish in nature. She also found that she was yesterday. She has been getting nausea and vomiting after eating. Also has not been getting her menstrual period. She checked her urine was positive yesterday. No bleeding or pain. no Trauma. Allergies: Coded Allergies: CODEINE (Verified Allergy, Mild, Hives, 10/24/18) Patient History Past Medical History: see triage record, old chart reviewed Past Surgical History: none Pertinent Family History: none Social History: Denies: smoking Last Menstrual Period: unk Now: Yes - unk how far : 3 Para: 1 Immunizations: other Reviewed Nursing Documentation: PMH: Agreed; PSxH: Agreed Nursing Documentation-PMH Past Medical History: No Stated History Review of Systems Eye: Denies: eye pain, blurred vision ENT: Denies: ear pain, nose congestion, throat swelling Respiratory: Denies: cough, shortness of breath Cardiovascular: Denies: chest pain, palpitations Gastrointestinal: Denies: abdominal pain, diarrhea, nausea, vomiting Genitourinary: Reports: vag bleed/dc Musculoskeletal: Denies: back pain, joint pain Skin: Denies: rash Neurological: Denies: headache, numbness Endocrine: Denies: increased thirst, increased urine Hematologic/Lymphatic: Denies: easy bruising All Other Systems: negative except mentioned in HPI Physical Exam Vital Signs Date Time Temp Pulse Resp B/P (MAP) Pulse Ox O2 Delivery O2 Flow Rate FiO2 12/18/18 02:23 99.0 87 18 120/69 (86) 96 Room Air Vitals normal Sp02 EP Interpretation: reviewed, normal General Appearance: well appearing, no apparent distress, alert Head: normocephalic, atraumatic Eyes: bilateral eye PERRL, bilateral eye EOMI ENT: hearing grossly normal, normal pharynx Neck: full range of motion, supple, no meningismus Respiratory: chest non-tender, lungs clear, normal breath sounds Cardiovascular #1: regular rate, rhythm, no murmur Gastrointestinal: normal bowel sounds, non tender, no mass, no organomegaly, no bruit, non-distended Genitourinary: other - Pelvic exam 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 External exam normal. Internal exam shows yellowish-greenish discharge. No cervical motion tenderness. Musculoskeletal: back normal, gait/station normal, normal range of motion Psychiatric: mood/affect normal Medical Decision Making Diagnostic Impression: Primary Impression: Acute cervicitis Additional Impressions: UTI (urinary tract infection) Qualified Codes: N30.00 - Acute cystitis without hematuria First trimester ER Course Patient presents with vaginal discharge and first trimester . Because of the color of the discharge there were a potential for gonorrhea. Rocephin and azithromycin given here. She may have a urinary tract infection. I did a bedside ultrasound and did show a gestational sac with no obvious heart rate seen. By my measurement this is around 6 to 7 weeks. Unlikely to be a heterotropic since she is not taking any fertility medication. No evidence of ectopic. Will discharge home. Last Vital Signs Date Time Temp Pulse Resp B/P (MAP) Pulse Ox O2 Delivery O2 Flow Rate FiO2 12/18/18 02:37 99.0 80 18 120/69 96 Room Air Status: improved Disposition: HOME, SELF-CARE Condition: Stable Scripts Pnv Cmb#21/Iron/Folic Acid ( COMPLETE CAPLET) 1 Each Tablet 1 EACH PO DAILY, #100 TAB Prov: Liborio Gunn MD 12/18/18 Cephalexin* (KEFLEX*) 500 Mg Capsule 500 MG ORAL TID, #21 CAP Prov: Liborio Gunn MD 12/18/18 Ondansetron (Zofran) 4 Mg Tablet 4 MG ORAL Q6H PRN for Nausea & Vomiting, #30 TAB 0 Refills Prov: Liborio Gunn MD 12/18/18 Referrals: [facility]/,REFERRING (PCP) Additional Instructions: Follow-up with your BUILDING SERVICES SUPERVISOR within a week. Return for bleeding, increasing pain , nausea vomiting or bleeding. Return for any concern. Liborio Gunn MD Dec 18, 2018 02:42
[2018-12-18 02:49] LABS: APPEARANCE,URINE CLEAR; BILIRUBIN, URINE NEGATIVE (NEGATIVE); GLUCOSE, URINE (UA) NEGATIVE (NEGATIVE); KETONES,URINE NEGATIVE (NEGATIVE); LEUKOCYTE ESTERASE ,URINE 2+ (NEGATIVE); NITRITE,URINE NEGATIVE (NEGATIVE); PH,URINE 6 (4.5-8.0); PROTEIN,URINE NEGATIVE (NEGATIVE); UROBILINOGEN,URINE NORMAL MG/DL (0.0-1.0)
[2018-12-18 02:50] LABS: COLOR,URINE YELLOW
[2018-12-18] MEDS ORDERED: Lidocaine 1% MPF 10mg/ml 5ml INJ ONE (03:15)
[2018-12-18] MEDS ORDERED: Azithromycin 250mg tab ORAL ONE (03:15)
[2018-12-18] MEDS ORDERED: CEPHALEXIN500 MG ORAL (03:17)
[2018-12-18] MEDS ORDERED: ZOFRAN4 MG ORAL (03:17)
[2018-12-18] MEDS ORDERED: PRENATAL COMPL1 EAC1 PO (03:18)
[2018-12-18 03:29] VITALS: BP 120/72
== END 2018-12-18 03:30 | disposition home or self-care (01) ==
LOC: EMR 02:34
DX: O23.511 Infections of cervix in pregnancy, first trimester (principal); O23.11 Infections of bladder in pregnancy, first trimester; Z88.6 Allergy status to analgesic agent; Z3A.00 Weeks of gestation of pregnancy not specified
CPT/HCPCS: 81003; 87210; 96372; 96374; 99284; J0696; Q0144

== ENCOUNTER 2018-12-27 22:28 | Emergency (ER) | payer MEDICAID ==
[~2018-12-27] VITALS: Ht 165.1 cm; Wt 81.6 kg
[~2018-12-27 22:28] MED LIST changes: +CEPHALEXIN500 MG ORAL; +PRENATAL COMPL1 EAC1 PO
[2018-12-27 22:45] VITALS: BP 138/70
--- NOTE | 2018-12-27 22:45 | NUR ---
ED Nurse Note: Pt is AAOX4, VSS, with no signs of acute distress. No skin issues to note. Patient walked into ER from home due to N/V. Stated that 8 weeks and can not keep anything in X 1 week. Generalized weakness. Family at bedside.
--- NOTE | 2018-12-27 22:56 | Emergency Room Report ---
History of Present Illness General Chief Complaint: Nausea, Vomiting, and Diarrhea Source: Patient Present Illness HPI This is a 28-year-old female who is 3, para 1, A1, approximately 8 weeks . She presents with chief complaint of nausea and vomiting. Onset for about a week now. Unable to keep anything down. Denies any fever chills but denies any abdominal pain but denies any bleeding. Saw her about 9 days ago. My bedside ultrasound showed gestational sac without any IUP. Allergies: Coded Allergies: CODEINE (Verified Allergy, Mild, Hives, 10/24/18) Patient History Past Medical History: see triage record, old chart reviewed Past Surgical History: none Pertinent Family History: none Social History: Denies: smoking Now: Yes Immunizations: other Reviewed Nursing Documentation: PMH: Agreed; PSxH: Agreed Nursing Documentation-PMH Past Medical History: No Stated History Review of Systems Eye: Denies: eye pain, blurred vision ENT: Denies: ear pain, nose congestion, throat swelling Respiratory: Denies: cough, shortness of breath Cardiovascular: Denies: chest pain, palpitations Gastrointestinal: Reports: nausea, vomiting; Denies: abdominal pain, diarrhea Musculoskeletal: Denies: back pain, joint pain Skin: Denies: rash Neurological: Denies: headache, numbness Endocrine: Denies: increased thirst, increased urine Hematologic/Lymphatic: Denies: easy bruising All Other Systems: negative except mentioned in HPI Physical Exam Vital Signs Date Time Temp Pulse Resp B/P (MAP) Pulse Ox O2 Delivery O2 Flow Rate FiO2 12/27/18 22:33 98.4 73 18 134/69 (90) 99 Room Air Vitals normal Sp02 EP Interpretation: reviewed, normal General Appearance: well appearing, no apparent distress, alert Head: normocephalic, atraumatic Eyes: bilateral eye PERRL, bilateral eye EOMI ENT: hearing grossly normal, normal pharynx Neck: full range of motion, supple, no meningismus Respiratory: chest non-tender, lungs clear, normal breath sounds Cardiovascular #1: regular rate, rhythm, no murmur Gastrointestinal: normal bowel sounds, non tender, no mass, no organomegaly, no bruit, non-distended Musculoskeletal: back normal, gait/station normal, normal range of motion Psychiatric: mood/affect normal Medical Decision Making Diagnostic Impression: Primary Impression: Hyperemesis gravidarum Additional Impression: Dehydration ER Course Patient with hyperemesis gravidarum. She may have a urinary tract infection but a lot of contamination. Will wait for urine culture since she was just on antibiotics. She does have yeast in the urine and is currently on vaginal cream for it. She is contraindicated for Diflucan. Told her to continue with that and follow-up with BRAND MARKETING COORDINATOR. She is to feel better after IV fluids and antinausea medication. No evidence of any ectopic . Bedside ultrasound today showed IUP with good heartbeat of 140s. Last Vital Signs Date Time Temp Pulse Resp B/P (MAP) Pulse Ox O2 Delivery O2 Flow Rate FiO2 12/27/18 22:33 98.4 73 18 134/69 (90) 99 Room Air Status: improved Disposition: HOME, SELF-CARE Condition: Stable Scripts Cephalexin* (KEFLEX*) 500 Mg Capsule 500 MG ORAL TID, #21 CAP Prov: Liborio Gunn MD 12/28/18 Ondansetron Odt* (ZOFRAN ODT*) 4 Mg Tab.rapdis 4 MG BC EVERY 6 HOURS PRN for Nausea & Vomiting, #30 TAB 0 Refills Prov: Liborio Gunn MD 12/28/18 Additional Instructions: Advance diet slowly. Follow-up with your doctor in 7 days. Return if symptoms worsen. Liborio Gunn MD Dec 27, 2018 22:56
[2018-12-27] MEDS ORDERED: D5NS 1,000 ML IV ONE (23:00)
[2018-12-27 23:36] LABS: APPEARANCE,URINE CLOUDY; BASOPHILS % (AUTO) 0.5 % (0.0-2.0); BILIRUBIN, URINE 1+ (NEGATIVE); EOSINOPHILS % (AUTO) 0.7 % (0.0-3.0); GLUCOSE, URINE (UA) NEGATIVE (NEGATIVE); KETONES,URINE 4+ (NEGATIVE); LEUKOCYTE ESTERASE ,URINE 3+ (NEGATIVE); LYMPHOCYTES % (AUTO) 23.5 % (20.0-45.0); MEAN CORPUSCULAR VOLUME 87 FL (80-99); MONOCYTES % (AUTO) 5.9 % (1.0-10.0); NEUTROPHILS % (AUTO) 69.3 % (45.0-75.0); NITRITE,URINE NEGATIVE (NEGATIVE); PH,URINE 5 (4.5-8.0); PLATELET COUNT 327 K/UL (150-450); PROTEIN,URINE 2+ (NEGATIVE); RED BLOOD COUNT 3.66 M/UL (4.20-5.40); RED CELL DISTRIBUTION WIDTH 11.3 % (11.6-14.8); UROBILINOGEN,URINE 4 MG/DL (0.0-1.0); WHITE BLOOD COUNT 10.9 K/UL (4.8-10.8)
[2018-12-27 23:45] LABS: COLOR,URINE YELLOW
[2018-12-27 23:46] LABS: ANION GAP 13 mmol/L (5-15); BLOOD UREA NITROGEN 10 mg/dL (7-18); CALCIUM 9.6 MG/DL (8.5-10.1); CARBON DIOXIDE 20 MMOL/L (21-32); CHLORIDE 104 MMOL/L (98-107); CREATININE 0.9 MG/DL (0.55-1.30); POTASSIUM 3.7 MMOL/L (3.5-5.1); SODIUM 137 MMOL/L (136-145)
[2018-12-28] MEDS ORDERED: cefTRIAXone 1 GM in NS 55 ML IVPB ONE (00:15)
[2018-12-28] MEDS ORDERED: Metoclopramide 10mg/2ml Inj IVP ONE (00:30)
[2018-12-28] MEDS ORDERED: D5NS 1,000 ML IV ONE (00:30)
[2018-12-28] MEDS ORDERED: CEPHALEXIN500 MG ORAL (01:21)
[2018-12-28] MEDS ORDERED: ONDANSETRON ODT4 MG BC (01:21)
[2018-12-28 02:15] VITALS: BP 97/45
== END 2018-12-28 02:15 | disposition home or self-care (01) ==
LOC: EMR 22:49
DX: O21.1 Hyperemesis gravidarum with metabolic disturbance (principal); Z3A.08 8 weeks gestation of pregnancy; Z88.5 Allergy status to narcotic agent
CPT/HCPCS: 36415; 80048; 81001; 84702; 85025; 87086; 96365; 96367; 96375; 99284; J0696; J2405; J2765

== ENCOUNTER 2019-04-09 17:32 | Emergency (ER) | payer MEDICAID ==
[~2019-04-09] VITALS: Ht 165.1 cm; Wt 85.3 kg
[~2019-04-09 17:32] MED LIST changes: +ONDANSETRON ODT4 MG BC
[2019-04-09 17:38] VITALS: BP 123/79
--- NOTE | 2019-04-09 17:47 | NUR ---
ED Nurse Note: PT FROM HOME CAME IN DUE TO FLU LIKE SYMPTOMS X 1 WEEK. PT C/O RUNNY NOES, HEADCAHE, COUGHING AND SORE THROAT. AAO X,4 AMBULATES WITH STEADY GAIT. NO RESPIRATORY DISTRESS AND SPEAKS IN FULL SENTENCES.
--- NOTE | 2019-04-09 18:33 | Emergency Room Report ---
History of Present Illness General Chief Complaint: Flu Like Symptoms Source: Patient Present Illness HPI 29 YO female presents to the ED c/o 1 week of cough, runny nose, nasal congestion, ST, fevers, chills and 8/10 in severity body aches. Pt. did not receive this years flu vaccination. She denies significant PMhx. Denies asthma, COPD, or smoking Hx. Pt. denies neck pain/stiffness, PRITCHARD or photophobia. has been taking theraflu OTC without relief. NO other aggravating or relieving factors at this time. Denies CP, SOB, or palpitations. Denies . Allergies: Coded Allergies: CODEINE (Verified Allergy, Mild, Hives, 10/24/18) Patient History Past Medical History: see triage record Past Surgical History: none Pertinent Family History: none Last Menstrual Period: now Now: No Reviewed Nursing Documentation: PMH: Agreed; PSxH: Agreed Nursing Documentation-PMH Past Medical History: No Stated History Hx Cardiac Problems: No Hx Hypertension: No Hx Pacemaker: No Hx Asthma: No Hx COPD: No Hx Diabetes: No Hx Cancer: No Hx Gastrointestinal Problems: No Hx Dialysis: No Hx Neurological Problems: No Hx Cerebrovascular Accident: No Hx Seizures: No Review of Systems All Other Systems: negative except mentioned in HPI Physical Exam Vital Signs Date Time Temp Pulse Resp B/P (MAP) Pulse Ox O2 Delivery O2 Flow Rate FiO2 04/09/19 17:38 98.2 73 20 123/79 96 Room Air Sp02 EP Interpretation: reviewed, normal General Appearance: no apparent distress, alert, GCS 15, non-toxic Head: normocephalic, atraumatic Eyes: bilateral eye normal inspection, bilateral eye PERRL ENT: hearing grossly normal, normal voice, TMs + canals normal, uvula midline, moist mucus membranes, nasal congestion, pharyngeal erythema Neck: full range of motion, no meningismus, no bony tend Respiratory: chest non-tender, lungs clear, normal breath sounds, no respiratory distress, no accessory muscle use, no wheezing, speaking full sentences Cardiovascular #1: regular rate, rhythm Musculoskeletal: normal range of motion, gait/station normal, non-tender Neurologic: alert, motor strength/tone normal, oriented x3, sensory intact, responsive, speech normal Psychiatric: judgement/insight normal Skin: no rash Lymphatic: no adenopathy Medical Decision Making PA Attestation Dr. Blankenship Is my supervising Physician whom patient management has been discussed with. Diagnostic Impression: Primary Impression: Acute viral syndrome ER Course 29 YO female presents to the ED c/o 1 week of cough, runny nose, nasal congestion, ST, fevers, chills and 8/10 in severity body aches. Pt. did not receive this years flu vaccination. She denies significant PMhx. Denies asthma, COPD, or smoking Hx. Pt. denies neck pain/stiffness, PRITCHARD or photophobia. has been taking theraflu OTC without relief. NO other aggravating or relieving factors at this time. Denies CP, SOB, or palpitations. Denies . Ddx considered but are not limited to URI, pneumonia, PE, strep pharyngitis, meningitis, influenza, OM/OE just to name a few. Vital signs: Pt. is afebrile, the remaining VS are WNL H&PE are most consistent with Viral Syndrome suspicious for Influenza will treat clinically - no meningeal signs, Lungs are clear and oropharynx is not involved, no evidence of bacterial infection at this time. ORDERS: none required at this time, the diagnosis is clinical ED INTERVENTIONS: -Viscous lidocaine PO --PT. EDUCATION: --I discussed with this patient that I will be prescribing Tamiflu which is an antiviral. This medication is not always covered by insurance and is not always available at pharmacies. I educated patient that this medication has been shown to reduce symptoms by 1 day, and if unable to obtain there is no alternative, and to continue conservative treatment. DISCHARGE: At this time pt. is stable for d/c to home. Will provide printed patient care instructions, and any necessary prescriptions. Care plan and follow up instructions have been discussed with the patient prior to discharge. Last Vital Signs Date Time Temp Pulse Resp B/P (MAP) Pulse Ox O2 Delivery O2 Flow Rate FiO2 04/09/19 17:45 75 17 Room Air 04/09/19 17:38 98.2 123/79 (94) 96 Disposition: HOME, SELF-CARE Condition: Stable Scripts Oseltamivir Phosphate (Tamiflu) 75 Mg Capsule 75 MG ORAL TWICE A DAY for 5 Days, #10 CAP Prov: Bailey Tian 04/09/19 Guaifenesin (Mucinex) 1,200 Mg Tab.er.12h 1200 MG PO Q12HR, #20 TAB Prov: Bailey Tian 04/09/19 Lidocaine HCl 2% Viscous (Lidocaine HCl 2% Viscous) 100 Ml Solution 10 ML ORAL QID, #120 ML Prov: Bailey Tian 04/09/19 Benzonatate* (TESSALON PERLE*) 100 Mg Capsule 100 MG ORAL THREE TIMES A DAY, #30 PERLE Prov: Bailey Tian 04/09/19 D-Methorphan Hb/Prometh Hcl* (PROMETHAZINE-DM SYRUP*) 118 Ml Syrup 5 ML ORAL Q6H PRN for For Cough, #120 ML 0 Refills Prov: Bailey Tian 04/09/19 Acetaminophen* (TYLENOL EXTRA STRENGTH*) 500 Mg Tablet 500 MG ORAL Q6H PRN for Mild Pain/Temp > 100.5, #30 TAB 0 Refills Prov: Bailey Tian 04/09/19 Referrals: NON PHYSICIAN (PCP) Patient Instructions: Upper Respiratory Infection, Adult, [id number] Additional Instructions: Take medications as directed. Follow up with a Primary Care Provider in 3-5 days, even if your symptoms have resolved. --Please review list of primary care clinics, if you do not already have a primary care provider Return sooner to ED if new symptoms occur, or current symptoms become worse. - Please note that this Emergency Department Report was dictated using [employer] System[employer] marker technology software, occasionally this can lead to erroneous entry secondary to interpretation by the dictation equipment. Bailey Tian Apr 09, 2019 18:33
[2019-04-09] MEDS ORDERED: PROMETHAZINE-D118 ML ORAL (18:35)
[2019-04-09] MEDS ORDERED: TESSALON PERLE100 MG ORAL (18:35)
[2019-04-09] MEDS ORDERED: TYLENOL EXTRA500 MG ORAL (18:35)
[2019-04-09] MEDS ORDERED: LIDOCAINE VISC100 ML ORAL (18:35)
[2019-04-09] MEDS ORDERED: MUCINEX1200 MG PO (18:35)
[2019-04-09] MEDS ORDERED: TAMIFLU75 MG ORAL (18:36)
[2019-04-09] MEDS ORDERED: Lidocaine 2% Visc 15ml soln ORAL ONE (18:45)
--- NOTE | 2019-04-09 18:46 | NUR ---
ER DISCHARGE NOTE: Patient is cleared to be discharged per ERMD, pt is aox4, on room air, with stable vital signs. pt was given dc and prescription instructions, pt was able to verbalize understanding, pt id band removed. pt is able to ambulate with steady gait. pt took all belongings. Prescriptions provided.
[2019-04-09 18:47] VITALS: BP 110/79
== END 2019-04-09 18:47 | disposition home or self-care (01) ==
LOC: EMR 18:00
DX: B34.9 Viral infection, unspecified (principal); Z88.6 Allergy status to analgesic agent
CPT/HCPCS: 99282

== ENCOUNTER 2020-06-16 09:08 | Emergency (ER) | payer MEDICAID, OTHER ==
[~2020-06-16] VITALS: Ht 165.1 cm; Wt 81.6 kg
[~2020-06-16 09:08] MED LIST changes: +LIDOCAINE VISC100 ML ORAL; +MUCINEX1200 MG PO; +PROMETHAZINE-D118 ML ORAL; +TAMIFLU75 MG ORAL; +TESSALON PERLE100 MG ORAL; +TYLENOL EXTRA500 MG ORAL
[2020-06-16] MEDS ORDERED: Metoclopramide 10mg/2ml Inj IVP ONE (09:45)
[2020-06-16] MEDS ORDERED: DiphenhydrAMINE 50mg/ml Inj IVP ONE (09:45)
[2020-06-16] MEDS ORDERED: D5NS 1,000 ML IV ONE (09:45)
--- NOTE | 2020-06-16 09:50 | Emergency Room Report ---
History of Present Illness General Chief Complaint: Complications Source: Patient Present Illness HPI Patient is a week . She has been vomiting continuously. She has been able to keep down ice chips but no other food or fluids. She has tried home remedies but has tried no medication. Her last menstruation was March 31. She does have a 6-year-old son at home. She had some spotting a week ago that was dark brown material. There has been no dysuria or continued spotting at this time. She has some suprapubic tenderness which is rated 8/10 and positional. She believes this might be related to vomiting. She does not know her blood type. Patient denies exposure to positive Covid positive contacts. No fevers, chills, sore throat, chest pain, palpitations, diarrhea, dysuria, shortness of breath, joint pain, rashes, depression, anxiety, visual changes, dizziness, headache. Allergies: Coded Allergies: CODEINE (Verified Allergy, Mild, Hives, 10/24/18) COVID-19 Screening Contact w/high risk pt: No Experienced COVID-19 symptoms?: No COVID-19 Testing performed TAPER MACHINE: No Patient History Past Medical History: see triage record Social History: Denies: smoking, alcohol use, drug use Social History Narrative Has 6-year-old child Last Menstrual Period: 03/31/20 Now: Yes : 4 Para: 1 Reviewed Nursing Documentation: PMH: Agreed; PSxH: Agreed Nursing Documentation-PMH Past Medical History: No Stated History Hx Cardiac Problems: No Hx Hypertension: No Hx Pacemaker: No Hx Asthma: No Hx COPD: No Hx Diabetes: No Hx Cancer: No Hx Gastrointestinal Problems: No Hx Dialysis: No Hx Neurological Problems: No Hx Cerebrovascular Accident: No Hx Seizures: No Review of Systems All Other Systems: negative except mentioned in HPI Physical Exam Vital Signs Date Time Temp Pulse Resp B/P (MAP) Pulse Ox O2 Delivery O2 Flow Rate FiO2 06/16/20 09:27 98.4 75 17 114/66 (82) 99 Room Air Sp02 EP Interpretation: reviewed, normal General Appearance: well appearing, no apparent distress, GCS 15 Head: normocephalic Eyes: bilateral eye PERRL, bilateral eye other - Disconjugate gaze ENT: moist mucus membranes Neck: supple Respiratory: lungs clear, normal breath sounds Cardiovascular #1: regular rate, rhythm Cardiovascular #2: 2+ radial (R) Gastrointestinal: normal inspection, normal bowel sounds, no mass, non-disten ded, no guarding, no rebound, tenderness - [place] suprapubic Genitourinary: deferred - For ultrasound Musculoskeletal: back normal, normal range of motion, gait/station normal Neurologic: alert, oriented x3, grossly normal Psychiatric: mood/affect normal Skin: no rash, warm/dry Medical Decision Making Diagnostic Impression: Primary Impression: Hyperemesis gravidarum Additional Impression: Twin gestation in first trimester Qualified Codes: O30.001 - Twin , unspecified number of placenta and unspecified number of amniotic sacs, first trimester ER Course Patient presents with vomiting 8 weeks with twins. Differential includes hyperemesis gravidarum, gastroenteritis, urinary tract infection, threatened miscarriage amongst others. Patient evaluated with labs and ultrasound. Patient treated with D5 normal saline 1 L and also Reglan with Benadryl. Labs unremarkable. Blood type O+ Patient tolerating oral intake without vomiting. Pain resolved. Discussed findings with patient. Patient stable for outpatient observation and treatment. (Although RN notes urine output, lab reports never receiving sample. Attempt to contact patient - number not in service.) Laboratory Tests Test 06/16/20 08:40 White Blood Count 11.2 K/UL (4.8-10.8) H Red Blood Count 3.93 M/UL (4.20-5.40) L Hemoglobin 11.7 G/DL (12.0-16.0) L Hematocrit 35.3 % (37.0-47.0) L Mean Corpuscular Volume 90 FL (80-99) Mean Corpuscular Hemoglobin 29.7 PG (27.0-31.0) Mean Corpuscular Hemoglobin Concent 33.1 G/DL (32.0-36.0) Red Cell Distribution Width 12.4 % (11.6-14.8) Platelet Count 305 K/UL (150-450) Mean Platelet Volume 7.1 FL (6.5-10.1) Neutrophils (%) (Auto) 74.3 % (45.0-75.0) Lymphocytes (%) (Auto) 18.3 % (20.0-45.0) L Monocytes (%) (Auto) 6.4 % (1.0-10.0) Eosinophils (%) (Auto) 0.4 % (0.0-3.0) Basophils (%) (Auto) 0.6 % (0.0-2.0) Sodium Level 137 MMOL/L (136-145) Potassium Level 3.8 MMOL/L (3.5-5.1) Chloride Level 103 MMOL/L (98-107) Carbon Dioxide Level 25 MMOL/L (21-32) Anion Gap 9 mmol/L (5-15) Blood Urea Nitrogen 12 mg/dL (7-18) Creatinine 1.0 MG/DL (0.55-1.30) Estimated Glomerular Filtration Rate > 60 mL/min (>60) Glucose Level 93 MG/DL (74-106) Calcium Level 9.6 MG/DL (8.5-10.1) Total Bilirubin 0.3 MG/DL (0.2-1.0) Aspartate Amino Transferase (AST) 16 U/L (15-37) Alanine Aminotransferase (ALT) 19 U/L (12-78) Alkaline Phosphatase 52 U/L (46-116) Total Protein 8.2 G/DL (6.4-8.2) Albumin 3.8 G/DL (3.4-5.0) Globulin 4.4 g/dL Albumin/Globulin Ratio 0.9 (1.0-2.7) L Lipase 125 U/L (73-393) Human Chorionic Gonadotropin, Quant 705051 mIU/mL (1-6) H CT/MRI/US Diagnostic Results CT/MRI/US Diagnostic Results : Imaging Test Ordered: 1st trimester u/s Impression Findings: 2 gestational sacs demonstrated, each demonstrating live intrauterine pregnancies. Twin A has a heart rate of 126 bpm. Twin B has a heart rate of one 144. Twin A demonstrates a crown-rump length of 7 mm, corresponding to has been a gestational age 6 weeks 4 days. Twin B demonstrates crown-rump length of 7 mm, corresponding estimated gestational age 6 weeks 4 days. There is suggestion of a subchorionic hemorrhage adjacent to the twin A gestational sac, but this is not corroborated on the transvaginal images. Yolk sacs are demonstrated in both gestational sacs. The ovaries are normal in size and configuration and demonstrate normal Doppler signal. There is a small amount of free cul-de-sac fluid. Impression: Twin live intrauterine pregnancies, admitted gestational age 6 weeks 4 days by crown-rump length measurement of both pregnancies. Questionable small subchorionic hemorrhage demonstrated, seen only on the transabdominal images therefore possibly artifactual Small amount of free cul-de-sac fluid, presumably physiologic Last Vital Signs Date Time Temp Pulse Resp B/P (MAP) Pulse Ox O2 Delivery O2 Flow Rate FiO2 06/16/20 12:38 98.0 72 15 136/76 99 Room Air Status: improved Disposition: HOME, SELF-CARE Condition: Improved Scripts Promethazine Hcl* (PHENERGAN*) 25 Mg Tablet 25 MG ORAL Q8HR, #15 TAB 0 Refills Prov: Marco Antonio Hull MD 06/16/20 Promethazine HCl (Promethegan) 25 Mg Supp.rect 25 MG RECTAL Q6H PRN for Nausea & Vomiting, #6 SUPP 1 Refill Prov: Marco Antonio Hull MD 06/16/20 Marco Antonio Hull MD Jun 16, 2020 09:50
[2020-06-16 09:58] LABS: BASOPHILS % (AUTO) 0.6 % (0.0-2.0); EOSINOPHILS % (AUTO) 0.4 % (0.0-3.0); HEMATOCRIT 35.3 % (37.0-47.0); HEMOGLOBIN 11.7 G/DL (12.0-16.0); LYMPHOCYTES % (AUTO) 18.3 % (20.0-45.0); MEAN CORPUSCULAR VOLUME 90 FL (80-99); MONOCYTES % (AUTO) 6.4 % (1.0-10.0); NEUTROPHILS % (AUTO) 74.3 % (45.0-75.0); PLATELET COUNT 305 K/UL (150-450); RED BLOOD COUNT 3.93 M/UL (4.20-5.40); RED CELL DISTRIBUTION WIDTH 12.4 % (11.6-14.8); WHITE BLOOD COUNT 11.2 K/UL (4.8-10.8)
[2020-06-16 10:09] LABS: ANION GAP 9 mmol/L (5-15); BLOOD UREA NITROGEN 12 mg/dL (7-18); CALCIUM 9.6 MG/DL (8.5-10.1); CARBON DIOXIDE 25 MMOL/L (21-32); CHLORIDE 103 MMOL/L (98-107); POTASSIUM 3.8 MMOL/L (3.5-5.1); SODIUM 137 MMOL/L (136-145)
[2020-06-16 10:13] LABS: ALANINE AMINOTRANSFERASE 19 U/L (12-78); ALBUMIN 3.8 G/DL (3.4-5.0); ALBUMIN/GLOBULIN RATIO 0.9 (1.0-2.7); ALKALINE PHOSPHATASE 52 U/L (46-116); ASPARTATE AMINO TRANSFERASE 16 U/L (15-37); BILIRUBIN,TOTAL 0.3 MG/DL (0.2-1.0)
[2020-06-16] MEDS ORDERED: PHENERGAN SUPP25 MG RECTAL (12:19)
[2020-06-16] MEDS ORDERED: PHENERGAN25 M1 ORAL (12:19)
[2020-06-16 12:38] VITALS: BP 136/76
--- NOTE | 2020-06-16 12:41 | Diagnostic Imaging Report ---
Indication: Pelvic pain, abdominal pain, hyperemesis, patient Technique: Transabdominal and transvaginal images of the uterus and ovaries Comparison: 10/25/2018 Findings: 2 gestational sacs demonstrated, each demonstrating live intrauterine pregnancies. Twin A has a heart rate of 126 bpm. Twin B has a heart rate of one 144. Twin A demonstrates a crown-rump length of 7 mm, corresponding to has been a gestational age 6 weeks 4 days. Twin B demonstrates crown-rump length of 7 mm, corresponding estimated gestational age 6 weeks 4 days. There is suggestion of a subchorionic hemorrhage adjacent to the twin A gestational sac, but this is not corroborated on the transvaginal images. Yolk sacs are demonstrated in both gestational sacs. The ovaries are normal in size and configuration and demonstrate normal Doppler signal. There is a small amount of free cul-de-sac fluid. Impression: Twin live intrauterine pregnancies, admitted gestational age 6 weeks 4 days by crown-rump length measurement of both pregnancies. Questionable small subchorionic hemorrhage demonstrated, seen only on the transabdominal images therefore possibly artifactual Small amount of free cul-de-sac fluid, presumably physiologic
[2020-06-17] MEDS ORDERED: CEPHALEXIN500 MG ORAL (23:09)
[2020-06-17] MEDS ORDERED: UNISOM25 M1 PO (23:09)
[2020-06-17] MEDS ORDERED: TYLENOL EXTRA500 MG ORAL (23:09)
== END 2020-06-16 12:38 | disposition home or self-care (01) ==
LOC: EMR 12:15
DX: O21.0 Mild hyperemesis gravidarum (principal); O30.001 Twin pregnancy, unspecified number of placenta and unspecified number of amniotic sacs, first trimester; Z88.6 Allergy status to analgesic agent; Z3A.01 Less than 8 weeks gestation of pregnancy
CPT/HCPCS: 36415; 76801; 76817; 80053; 83690; 84702; 85025; 86850; 86900; 86901; 96365; 96375; J1200; J2765; Z7502; 99284

== ENCOUNTER 2020-06-17 19:41 | Emergency (ER) | payer OTHER ==
[~2020-06-17] VITALS: Ht 165.1 cm; Wt 81.6 kg
[~2020-06-17 19:41] MED LIST changes: +PHENERGAN SUPP25 MG RECTAL
--- NOTE | 2020-06-17 20:20 | NUR ---
ED Nurse Note: Patient came to the ED from home with complaints of vaginal bleeding, started one hour ago. Patient also reports being 8 weeks , hx of miscarriage. Denies any other symptoms.
[2020-06-17 20:31] VITALS: BP 101/63
--- NOTE | 2020-06-17 20:48 | Emergency Room Report ---
History of Present Illness General Chief Complaint: Vaginal Present Illness HPI 30-year-old female -0-1-1 here with vaginal bleeding. Patient is approximately 8 weeks based on ultrasound was performed by her [employer] physician 1 week ago. Says that this morning she began bleeding profusely. No clots. Denies headache, vision change, fevers, chills, chest pain, palpitation, shortness of breath, back pain, abdominal pain, nausea, vomiting, diarrhea, dysuria. Allergies: Coded Allergies: CODEINE (Verified Allergy, Mild, Hives, 10/24/18) COVID-19 Screening Contact w/high risk pt: No Experienced COVID-19 symptoms?: No COVID-19 Testing performed FILTERER: No Patient History Now: Yes : 3 Nursing Documentation-PMH Hx Cardiac Problems: No Hx Hypertension: No Hx Pacemaker: No Hx Asthma: No Hx COPD: No Hx Diabetes: No Hx Cancer: No Hx Gastrointestinal Problems: No Hx Dialysis: No Hx Neurological Problems: No Hx Cerebrovascular Accident: No Hx Seizures: No Review of Systems All Other Systems: negative except mentioned in HPI Physical Exam Vital Signs Date Time Temp Pulse Resp B/P (MAP) Pulse Ox O2 Delivery O2 Flow Rate FiO2 06/17/20 20:06 97.9 85 19 101/63 (76) 96 Room Air Sp02 EP Interpretation: reviewed, normal General Appearance: no apparent distress, alert, non-toxic Head: normocephalic, atraumatic Eyes: bilateral eye normal inspection, bilateral eye PERRL ENT: hearing grossly normal, normal pharynx, no angioedema, normal voice Neck: full range of motion, supple/symm/no masses Respiratory: chest non-tender, lungs clear, normal breath sounds, speaking full sentences Cardiovascular #1: regular rate, rhythm, no edema Cardiovascular #2: 2+ carotid (R), 2+ carotid (L), 2+ radial (R), 2+ radial (L), 2+ dorsalis pedis (R), 2+ dorsalis pedis (L) Gastrointestinal: normal bowel sounds, non tender, soft, non-distended, no guarding, no rebound Rectal: deferred Genitourinary: normal inspection, no CVA tenderness, other - Active bleeding within the vaginal canal Musculoskeletal: back normal, normal range of motion, gait/station normal, non- tender Neurologic: alert, motor strength/tone normal, oriented x3, sensory intact, responsive, speech normal Psychiatric: judgement/insight normal, memory normal, mood/affect normal, no suicidal/homicidal ideation Lymphatic: no adenopathy Medical Decision Making ER Course Laboratory Tests Test 06/17/20 20:28 White Blood Count 10.3 K/UL (4.8-10.8) Red Blood Count 3.82 M/UL (4.20-5.40) L Hemoglobin 11.5 G/DL (12.0-16.0) L Hematocrit 34.7 % (37.0-47.0) L Mean Corpuscular Volume 91 FL (80-99) Mean Corpuscular Hemoglobin 30.0 PG (27.0-31.0) Mean Corpuscular Hemoglobin Concent 33.0 G/DL (32.0-36.0) Red Cell Distribution Width 13.0 % (11.6-14.8) Platelet Count 284 K/UL (150-450) Mean Platelet Volume 7.4 FL (6.5-10.1) Neutrophils (%) (Auto) 64.5 % (45.0-75.0) Lymphocytes (%) (Auto) 28.4 % (20.0-45.0) Monocytes (%) (Auto) 5.6 % (1.0-10.0) Eosinophils (%) (Auto) 0.6 % (0.0-3.0) Basophils (%) (Auto) 0.8 % (0.0-2.0) Urine Color Yellow Urine Appearance Clear Urine pH 6 (4.5-8.0) Urine Specific [place] 1.020 (1.005-1.035) Urine Protein 1+ (NEGATIVE) H Urine Glucose (UA) Negative (NEGATIVE) Urine Ketones 3+ (NEGATIVE) H Urine Blood 4+ (NEGATIVE) H Urine Nitrite Negative (NEGATIVE) Urine Bilirubin Negative (NEGATIVE) Urine Urobilinogen 1 MG/DL (0.0-1.0) H Urine Leukocyte Esterase 1+ (NEGATIVE) H Urine RBC 2-4 /HPF (0 - 2) H Urine WBC 0-2 /HPF (0 - 2) Urine Squamous Epithelial Cells Few /LPF (NONE/OCC) Urine Bacteria Few /HPF (NONE) Urine Mucus Few /LPF (NONE/OCC) H Sodium Level 137 MMOL/L (136-145) Potassium Level 3.5 MMOL/L (3.5-5.1) Chloride Level 103 MMOL/L (98-107) Carbon Dioxide Level 24 MMOL/L (21-32) Anion Gap 10 mmol/L (5-15) Blood Urea Nitrogen 8 mg/dL (7-18) Creatinine 0.9 MG/DL (0.55-1.30) Estimated Glomerular Filtration Rate > 60 mL/min (>60) Glucose Level 109 MG/DL (74-106) H Calcium Level 9.6 MG/DL (8.5-10.1) Total Bilirubin 0.2 MG/DL (0.2-1.0) Aspartate Amino Transferase (AST) 13 U/L (15-37) L Alanine Aminotransferase (ALT) 18 U/L (12-78) Alkaline Phosphatase 49 U/L (46-116) Total Protein 7.7 G/DL (6.4-8.2) Albumin 3.7 G/DL (3.4-5.0) Globulin 4.0 g/dL Albumin/Globulin Ratio 0.9 (1.0-2.7) L Lipase 170 U/L (73-393) Human Chorionic Gonadotropin, Quant > 113013 mIU/mL (1-6) H 30-year-old female here with vaginal bleeding. Patient is approximately 8 weeks . Labs largely unremarkable. Currently awaiting results of transvaginal ultrasound. Signed out to oncoming physician. Last Vital Signs Date Time Temp Pulse Resp B/P (MAP) Pulse Ox O2 Delivery O2 Flow Rate FiO2 06/17/20 20:31 97.9 19 101/63 96 Room Air 06/17/20 20:06 85 Barak Myles M.D. Jun 17, 2020 20:48
[2020-06-17 20:53] LABS: APPEARANCE,URINE CLEAR; BILIRUBIN, URINE NEGATIVE (NEGATIVE); GLUCOSE, URINE (UA) NEGATIVE (NEGATIVE); KETONES,URINE 3+ (NEGATIVE); LEUKOCYTE ESTERASE ,URINE 1+ (NEGATIVE); NITRITE,URINE NEGATIVE (NEGATIVE); PH,URINE 6 (4.5-8.0); PROTEIN,URINE 1+ (NEGATIVE); UROBILINOGEN,URINE 1 MG/DL (0.0-1.0)
[2020-06-17 20:55] LABS: BASOPHILS % (AUTO) 0.8 % (0.0-2.0); EOSINOPHILS % (AUTO) 0.6 % (0.0-3.0); HEMATOCRIT 34.7 % (37.0-47.0); HEMOGLOBIN 11.5 G/DL (12.0-16.0); LYMPHOCYTES % (AUTO) 28.4 % (20.0-45.0); MEAN CORPUSCULAR VOLUME 91 FL (80-99); MONOCYTES % (AUTO) 5.6 % (1.0-10.0); NEUTROPHILS % (AUTO) 64.5 % (45.0-75.0); PLATELET COUNT 284 K/UL (150-450); RED BLOOD COUNT 3.82 M/UL (4.20-5.40); WHITE BLOOD COUNT 10.3 K/UL (4.8-10.8)
[2020-06-17 21:01] LABS: ANION GAP 10 mmol/L (5-15); BLOOD UREA NITROGEN 8 mg/dL (7-18); CALCIUM 9.6 MG/DL (8.5-10.1); CARBON DIOXIDE 24 MMOL/L (21-32); CHLORIDE 103 MMOL/L (98-107); CREATININE 0.9 MG/DL (0.55-1.30); POTASSIUM 3.5 MMOL/L (3.5-5.1); SODIUM 137 MMOL/L (136-145)
[2020-06-17 21:06] LABS: COLOR,URINE YELLOW
[2020-06-17 21:07] LABS: ALANINE AMINOTRANSFERASE 18 U/L (12-78); ALBUMIN 3.7 G/DL (3.4-5.0); ALBUMIN/GLOBULIN RATIO 0.9 (1.0-2.7); ALKALINE PHOSPHATASE 49 U/L (46-116); ASPARTATE AMINO TRANSFERASE 13 U/L (15-37); BILIRUBIN,TOTAL 0.2 MG/DL (0.2-1.0)
[2020-06-17] MEDS ORDERED: Acetaminophen 500mg (ES) tab ORAL ONE ×2 (22:03→22:15)
[2020-06-17] MEDS ORDERED: TYLENOL EXTRA500 MG ORAL (23:09)
[2020-06-17] MEDS ORDERED: UNISOM25 M1 PO (23:09)
[2020-06-17] MEDS ORDERED: CEPHALEXIN500 MG ORAL (23:09)
--- NOTE | 2020-06-17 23:10 | Emergency Room Report ---
Physical Exam Vital Signs Date Time Temp Pulse Resp B/P (MAP) Pulse Ox O2 Delivery O2 Flow Rate FiO2 06/17/20 20:06 97.9 85 19 101/63 (76) 96 Room Air Sp02 EP Interpretation: reviewed, normal Medical Decision Making Diagnostic Impression: Primary Impression: Threatened in first trimester Additional Impressions: UTI Nausea and vomiting in Vaginal bleeding Twin ER Course Care signed out to me by previous physician at 2200 pending ultrasound Differential diagnosis includes, threatened , ectopic , miscarriage, hemorrhagic ovarian cyst, inevitable , fibroids, severe anemia, dysfunctional uterine bleeding, vaginal / uterine mass, among others. Patient is hemodynamically stable. Apparently she is here for repeat examination due to trace vaginal bleeding. Abdominal examination is nontender and nonperitoneal. There is no report of gross vaginal hemorrhage. I reviewed the chart from yesterday. Work-up revealed threatened . Ultrasound was repeated today and found twin gestation with reassuring heart rate. There is an adjacent small subchorionic hemorrhage. Due to this, patient was advised of risk of miscarriage Cannot rule out threatened at this time. There is no evidence of critical anemia requiring blood transfusion. Rh status is positive, Rhogam was not indicated. Unlikely ruptured ectopic since patients abdomen is not peritoneal, no significant tenderness. No symptoms of severe anemia (near syncope, lightheadedness, severe fatigue), no indication for blood transfusion at this time. The patients presentation is not consistent with hemorrhagic ovarian cyst or torsion, and has no significant tenderness on exam. UA was consistent with urinary tract infection. Will treat with Keflex. Patient was advised that if her urine culture result is resistant to Keflex that she will be called with alternate antibiotic prescription. The patient appears stable for discharge home and follow up here in the ED in 12-24 hrs for repeat HCG quant testing, reevaluation and further treatment. 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 Strict return ER precautions were discussed. CT/MRI/US Diagnostic Results CT/MRI/US Diagnostic Results : Impression US First Trimester Additional Gestation, Transabdominal FINDINGS: Patient refused endovaginal exam due to cramping and bleeding. Based on an LMP of 03/31/2020, gestational age by dates is 11 weeks 1 day with an estimated delivery date of 01/05/2021. Gravid uterus measures 10.8 x 7.8 cm and contains 2 intrauterine gestational sacs with a trace amount of fluid like density adjacent to them, suggesting small subchorionic hemorrhages. Twin A to maternal right has a mean sac diameter of 2.1 cm, corresponding to a gestational age of 6 weeks 4 days. The yolk sac is identified measuring 3.8 mm. pole crown-rump length measuring 1.1 cm corresponds with a gestational age of 7 weeks 1 day. heart tone of 137 bpm. Twin B to maternal left has a mean sac diameter of 2.3 cm, corresponding to gestational age of 6 weeks 6 days. Yolk sac measures 4.8 mm. pole crown-rump length measures 1.1 cm, corresponding to gestation age of 7 weeks 0 days. heart tone of 144 bpm. Normal ovaries. Left ovary contains a 1.7 x 2.4 x 1.7 cm dominant cyst. No adnexal mass. Small amount of pelvic free fluid. The cervix is closed. IMPRESSION: Twin live intrauterine gestation with sonographic gestational age of 7 weeks 1 day, corresponding to an estimated delivery date of February 02, 2021. Recommend correlation with prior dating and clinical follow-up. Dictated By: Kim Cano M.D. Reevaluation Time: 23:06 Last Vital Signs Date Time Temp Pulse Resp B/P (MAP) Pulse Ox O2 Delivery O2 Flow Rate FiO2 06/17/20 20:31 97.9 19 101/63 96 Room Air 06/17/20 20:06 85 Status: improved Disposition: HOME, SELF-CARE Admit Decision Time: 23:06 Condition: Stable Scripts Doxylamine Succinate (Unisom) 25 Mg Tablet 25 MG PO BID for 7 Days, #14 TAB Prov: Carlene AlvarezO. 06/17/20 Acetaminophen* (TYLENOL EXTRA STRENGTH*) 500 Mg Tablet 500 MG ORAL Q6H PRN for Mild Pain/Temp > 100.5 for 5 Days, #24 TAB 0 Refills Prov: Carlene Alvarez.Dany. 06/17/20 Cephalexin* (KEFLEX*) 500 Mg Capsule 500 MG ORAL EVERY 12 HOURS for 10 Days, #20 CAP 0 Refills Prov: Carlene Alvarez D.O. 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 Take your vitamins. If you are unable to get a follow-up appointment with FOREST TECHNOLOGY PROFESSOR you can come to the emergency department for repeat evaluation, Follow-up with your doctor sooner if your condition requires a more timely clinical reevaluation. Return to the emergency department immediately if you feel that your condition is worsening or if you have any new or concerning symptoms. Review your discharge instructions and take any prescriptions given as instructed. You had a urine culture done to evaluate for specific types of bacteria associated with your urinary infection. You were given an antibiotic that should treat most bacteria that usually occur with a urinary infection, but there is always the possibility of antibiotic resistance. You will receive a telephone call if it is positive. If you do not receive a call, they are likely negative, but you should return to medical records to get your results to be sure, or have your primary doctor obtain them from our hospital, and especially if you are having persistent symptoms. If you are having persistent symptoms and are not able to get a hold of your culture results or your regular doctor you should return to the ER for a reevaluation. THE [facility] PROVIDES FREE OR LOW-COST HEALTH SERVICES TO PEOPLE WHO CAN SHOW PROOF THAT THEY LIVE IN [facility]. TO FIND MORE CLINICS PARTNERED WITH THE [facility] TO PROVIDE SERVICE, PLEASE CALL . Carlene Alvarez D.O. Jun 17, 2020 23:10
--- NOTE | 2020-06-17 23:53 | Diagnostic Imaging Report ---
EXAM: US First Trimester Additional Gestation, Transabdominal CLINICAL HISTORY: ABD PAIN TECHNIQUE: Real-time transabdominal obstetrical ultrasound with image documentation of the maternal pelvis and an additional first trimester . COMPARISON: No relevant prior studies available. FINDINGS: Patient refused endovaginal exam due to cramping and bleeding. Based on an LMP of 03/31/2020, gestational age by dates is 11 weeks 1 day with an estimated delivery date of 01/05/2021. Gravid uterus measures 10.8 x 7.8 cm and contains 2 intrauterine gestational sacs with a trace amount of fluid like density adjacent to them, suggesting small subchorionic hemorrhages. Twin A to maternal right has a mean sac diameter of 2.1 cm, corresponding to a gestational age of 6 weeks 4 days. The yolk sac is identified measuring 3.8 mm. pole crown-rump length measuring 1.1 cm corresponds with a gestational age of 7 weeks 1 day. heart tone of 137 bpm. Twin B to maternal left has a mean sac diameter of 2.3 cm, corresponding to gestational age of 6 weeks 6 days. Yolk sac measures 4.8 mm. pole crown-rump length measures 1.1 cm, corresponding to gestation age of 7 weeks 0 days. heart tone of 144 bpm. Normal ovaries. Left ovary contains a 1.7 x 2.4 x 1.7 cm dominant cyst. No adnexal mass. Small amount of pelvic free fluid. The cervix is closed. IMPRESSION: Twin live intrauterine gestation with sonographic gestational age of 7 weeks 1 day, corresponding to an estimated delivery date of February 02, 2021. Recommend correlation with prior dating and clinical follow-up.
== END 2020-06-17 23:30 | disposition home or self-care (01) ==
LOC: EMR 20:10
DX: O20.0 Threatened abortion (principal); O23.41 Unspecified infection of urinary tract in pregnancy, first trimester; Z3A.01 Less than 8 weeks gestation of pregnancy; Z88.5 Allergy status to narcotic agent
CPT/HCPCS: 36415; 76801; 80053; 81003; 83690; 84702; 85025; Z7502; 99284